=== PATIENT | male | born 1975 | race Caucasian/White ===

== ENCOUNTER 2020-12-03 21:21 | Emergency (ER) | payer OTHER ==
[2020-12-03] MEDS ORDERED: HYDROCODON-ACE1 EAC4 PO (23:22)
== END 2020-12-04 01:58 | disposition home or self-care (01) ==
LOC: ER1 21:21
DX: M25.512 Pain in left shoulder (principal)
CPT/HCPCS: 72125; 73030; 99284

== ENCOUNTER → 2020-12-10 | Outpatient (CLI) | payer OTHER ==
[~2020-12-10] MED LIST: HYDROCODON-ACE1 EAC4 PO
== END ==
LOC: KOH-I 14:26
DX: M50.123 Cervical disc disorder at C6-C7 level with radiculopathy (principal)
CPT/HCPCS: 72141